=== PATIENT | male | born 1990 | race Caucasian/White ===

== ENCOUNTER 2019-11-02 22:25 | Emergency (ER) | payer OTHER ==
[~2019-11-02] VITALS: Ht 190.5 cm; Wt 83.9 kg
[~2019-11-02 22:25] MED LIST: ACCUNEB SO1.25 MG/1 INH; ROBAXIN500 MG PO
[2019-11-02 22:32] VITALS: BP 145/85
[2019-11-02] MEDS ORDERED: AMOXICILLIN PO (22:40)
== END 2019-11-02 23:36 | disposition home or self-care (01) ==
LOC: ER 22:25
DX: R05 Cough (principal); R07.89 Other chest pain; R06.02 Shortness of breath; J45.909 Unspecified asthma, uncomplicated; Z88.2 Allergy status to sulfonamides; Z90.89 Acquired absence of other organs